=== PATIENT | female | born 1975 | race Caucasian/White ===

== ENCOUNTER 2017-10-01 19:05 | Emergency (ER) | payer MEDICAID, OTHER ==
[~2017-10-01] VITALS: Ht 170.2 cm; Wt 89.0 kg
[~2017-10-01 19:05] MED LIST: HYDR10TA16 PO; ULTR50TA PO
[2017-10-01] MEDS ORDERED: SODIUM CHLORIDE 0.9% FLUSH 10 ML FLUSH IVF PRN (19:15)
[2017-10-01] MEDS ORDERED: SODIUM CHLOR 0.9% 1000 ML INJ 1,000 ML IV ONE ×2 (19:15→21:30)
[2017-10-01 19:20] VITALS: BP 167/108; PULSE 118; RESP 14; TEMP 99.1; O2SAT 98
--- NOTE | 2017-10-01 19:23 | PD ---
HPI Chief Complaint: Cardiac Complaint Time Seen by Provider: 19:14 Travel History International Travel<30 days: No Contact w/Intl Traveler<30days: No Traveled to known affect area: No History of Present Illness HPI 42-year-old female presents to the emergency department by private transportation in the care of her family for evaluation of feeling as if her heart is racing. Patient denies any associated symptoms of chest pain shortness of breath pleuritic pain referred neck jaw back shoulder arm or abdominal pain. Patient denies any diaphoresis. No nausea or vomiting. No near syncope or syncope. Patient denies any prior history of rapid heartbeat. Patient states she drank 8 ounces cup of coffee approximately 5 PM. Patient states symptoms began around 6:30 PM while she was sitting at rest eating dinner. Patient states she feels as if her heart is still racing. In triage reportedly her heart rate was 161. Patient has history of Factor V Leiden deficiency and hypertension. Patient states she does not take a diuretic. Patient is not taking electrolyte supplements. Patient denies any known history of thyroid dysfunction. Patient has had no recent respiratory illness or cold symptoms is not taking any type of decongestant antihistamine or over- the-counter cold preparations. Patient denies alcohol use tobacco use or substance use. Patient's had no recent long distance travel protracted bedrest or surgical procedure does not report any lower extremity or upper extremity pain or swelling. No prior history of DVT or PE. PFSH Past Medical History Narrative Medical Factor V Leiden deficiency hypertension ectopic tubal ligation appendectomy elbow surgery; no tobacco use no alcohol use no substance use; nursing notes reviewed Cancer: No Cardiovascular Problems: No Endocrine: No Genitourinary: No Hepatitis: No Hiatal Hernia: No Immune Disorder: No Musculoskeletal: No Neurologic: No Psychiatric: No Reproductive: No Respiratory: No Thyroid Disease: No Ectopic : Yes Tubal Ligation: Yes Past Surgical History Abdominal Surgery: Yes (APPENDECTOMY) Appendectomy: Yes Gynecologic Surgery: Yes (TUBAL LIGATION) Joint Replacement: No Pacemaker: No Social History Alcohol Use: No Tobacco Use: No Substance Use: No Allergies-Medications (Allergen,Severity, Reaction): Coded Allergies: hydromorphone (Unverified Adverse Reaction, Severe, Nausea/Vomiting, ) Reported Meds & Prescriptions Reported Meds & Active Scripts Active Metoprolol Tartrate 25 Mg Tab 12.5 Mg PO DAILY Reported Zyrtec (Cetirizine HCl) 10 Mg Capsule 10 Mg PO DAILY Cholestyramine 4 Gm/Dose Powd 4 Gm PO BID 1 level scoopful of powder contains 4 grams of cholestyramine. Amlodipine (Amlodipine Besylate) 5 Mg Tab 5 Mg PO DAILY Review of Systems Except as stated in HPI: all other systems reviewed are Neg General / Constitutional: No: Fever, Chills HENT: No: Congestion Cardiovascular: Positive: Palpitations, Tachycardia, No: Chest Pain or Discomfort, Diaphoresis, Syncope, Dyspnea on exertion Respiratory: No: Cough, Shortness of Breath, Pleuritic Pain Gastrointestinal: No: Nausea, Vomiting, Abdominal Pain Genitourinary: No: Dysuria Musculoskeletal: No: Edema, Pain Skin: No Rash Neurologic: No: Weakness, Dizziness, Syncope Psychiatric: No: Anxiety Hematologic/Lymphatic: No: Easy Bruising Physical Exam Narrative GENERAL: Well-developed well-nourished obese female in no apparent acute distress or respiratory distress; GCS 15 SKIN: Warm and dry. HEAD: Normocephalic. EYES: No scleral icterus. No injection or drainage. NECK: Supple, trachea midline. No JVD or lymphadenopathy. CARDIOVASCULAR: Increased Regular rate and rhythm without murmurs, gallops, or rubs. Radial and dorsalis pedis pulses 2+ to palpation with rapid pulse. Capillary refill brisk and less than 2 seconds. RESPIRATORY: Breath sounds equal bilaterally. No accessory muscle use. GASTROINTESTINAL: Abdomen soft, non-tender, nondistended. MUSCULOSKELETAL: No cyanosis, or edema. BACK: Nontender without obvious deformity. No CVA tenderness. Data Data Last Documented VS Vital Signs Date Time Temp Pulse Resp B/P (MAP) Pulse Ox O2 Delivery O2 Flow Rate FiO2 10/01/17 20:45 Room Air 10/01/17 19:30 128 16 147/104 (118) 98 10/01/17 19:20 99.1 Orders Orders Electrocardiogram (10/01/17 19:14) Basic Metabolic Panel (Bmp) (10/01/17 19:14) B-Type Natriuretic Peptide (10/01/17 19:14) Ckmb (Isoenzyme) Profile (10/01/17 19:14) Complete Blood Count With Diff (10/01/17 19:14) Magnesium (Mg) (3/8/18 19:14) Prothrombin Time / Inr (Pt) (10/01/17 19:14) Act Partial Throm Time (Ptt) (10/01/17 19:14) Troponin I (10/01/17 19:14) Chest, Single Ap (10/01/17 19:14) Ecg Monitoring (10/01/17 19:14) Bilateral Bp Monitoring (10/01/17 19:14) Iv Access Insert/Monitor (10/01/17 19:14) Oximetry (10/01/17 19:14) Oxygen Administration (10/01/17 19:14) Sodium Chloride 0.9% Flush (Ns Flush) (10/01/17 19:15) Sodium Chlor 0.9% 1000 Ml Inj (Ns 1000 M (10/01/17 19:15) Thyroid Stimulating Hormone (10/01/17 19:14) Sodium Chlor 0.9% 1000 Ml Inj (Ns 1000 M (10/01/17 19:30) CKMB (10/01/17 19:20) CKMB% (10/01/17 19:20) Sodium Chlorid 0.9% 500 Ml Inj (Ns 500 M (10/01/17 20:45) Potassium Chloride (Kcl) (10/01/17 20:45) D-Dimer (10/01/17 20:35) Ct Pulmonary Angiogram (10/01/17 ) Sodium Chlor 0.9% 1000 Ml Inj (Ns 1000 M (10/01/17 21:30) Iohexol 350 Inj (Omnipaque 350 Inj) (10/01/17 21:53) Metoprolol Tartrate (Lopressor) (10/01/17 22:30) Ed Discharge Order (10/01/17 22:25) Labs Laboratory Tests Test 10/01/17 19:20 White Blood Count 9.1 TH/MM3 Red Blood Count 4.78 MIL/MM3 Hemoglobin 15.2 GM/DL Hematocrit 41.9 % Mean Corpuscular Volume 87.5 FL Mean Corpuscular Hemoglobin 31.7 PG Mean Corpuscular Hemoglobin Concent 36.3 % Red Cell Distribution Width 13.3 % Platelet Count 263 TH/MM3 Mean Platelet Volume 8.1 FL Neutrophils (%) (Auto) 49.5 % Lymphocytes (%) (Auto) 40.7 % Monocytes (%) (Auto) 7.4 % Eosinophils (%) (Auto) 1.8 % Basophils (%) (Auto) 0.6 % Neutrophils # (Auto) 4.5 TH/MM3 Lymphocytes # (Auto) 3.7 TH/MM3 Monocytes # (Auto) 0.7 TH/MM3 Eosinophils # (Auto) 0.2 TH/MM3 Basophils # (Auto) 0.1 TH/MM3 CBC Comment AUTO DIFF Differential Comment AUTO DIFF CONFIRMED Platelet Estimate NORMAL Platelet Morphology Comment NORMAL Spherocytes 1+ Ovalocytes 1+ Prothrombin Time 9.8 SEC Prothromb Time International Ratio 1.0 RATIO Activated Partial Thromboplast Time 25.7 SEC D-Dimer Quantitative (PE/DVT) 0.60 MG/L FEU Blood Urea Nitrogen 12 MG/DL Creatinine 0.96 MG/DL Random Glucose 172 MG/DL Calcium Level 9.0 MG/DL Magnesium Level 2.1 MG/DL Sodium Level 140 MEQ/L Potassium Level 3.2 MEQ/L Chloride Level 104 MEQ/L Carbon Dioxide Level 25.9 MEQ/L Anion Gap 10 MEQ/L Estimat Glomerular Filtration Rate 64 ML/MIN Total Creatine Kinase 184 U/L Creatine Kinase MB 1.5 NG/ML Troponin I LESS THAN 0.02 NG/ML B-Type Natriuretic Peptide 7 PG/ML Thyroid Stimulating Hormone 3rd Gen 2.310 uIU/ML MDM Medical Decision Making Medical Screen Exam Complete: Yes Emergency Medical Condition: Yes Medical Record Reviewed: Yes Interpretation(s) EKG sinus tachycardia rate [address] elevation injury pattern or ectopy note PCXR: nad Last Impressions Chest X-Ray 10/01/17 1914 Draft Impressions: Service Date/Time: September 19:29 - CONCLUSION: The lungs are clear. Greg Rodrigues MD CT Angiography 10/01/17 0000 Signed Impressions: Service Date/Time: September 21:49 - CONCLUSION: 1. The study is negative for pulmonary embolism. 2. Lower lung areas of scarring or atelectasis. Greg Rodrigues MD CBC & BMP Diagram 10/01/17 19:20 Calcium Level 9.0, Magnesium Level 2.1 Vital Signs Date Time Temp Pulse Resp B/P (MAP) Pulse Ox O2 Delivery O2 Flow Rate FiO2 10/01/17 20:45 Room Air 10/01/17 19:30 128 16 147/104 (118) 98 Room Air 10/01/17 19:26 123 14 159/103 (121) 98 Room Air 10/01/17 19:26 14 97 Room Air 10/01/17 19:24 118 14 97 Room Air 10/01/17 19:20 99.1 118 14 167/108 (127) 98 Differential Diagnosis Palpitations SVT arrhythmia ACS electrolyte disturbance PE pneumothorax Narrative Course Patient placed on cardiac catheterization technologist with continuous pulse oximetry patient identified on cardiac catheterization technologist to be in SVT regular narrow complex tachycardia with rate of 165; IV access obtained; vagal maneuvers performed without success. However while ensuring orders patient spontaneous converted to a sinus tachycardia with rate of 125. EKG no injury pattern noted non-specific isolated lead III Q-wave. @ 7:54 PM cardiac catheterization technologist ST 116 port cxr no acute abnormality; patient reports no pain or dyspnea; feels improved; labs pending At 9:15 PM patient's d-dimer is elevated in view of history of factor V Leiden deficiency and SVT with normal range electrolytes except for mildly decreased potassium CT pulmonary angiogram ordered. Patient administered IV fluids. Patient will be given prescription for metoprolol. No work 1 day. And encouraged to follow-up with her primary care provider [address] pulmonary angiogram -- negative for PE; VS HR nsr 98 w/o ectopy ra O2 sat 98 % BP 150/87 ; patient given x 1 dose metoprolol 12.5 mg and RX ---stable for outpatient management; encouraged to increase fluid hydration and potassium containing foods and beverages to dietary intake follow-up with her primary care provider and appears stable for outpatient Holter monitoring and echocardiogram. Diagnosis Primary Impression: SVT (supraventricular tachycardia) Additional Impression: Hypokalemia Referrals: Primary Care Physician 1 day Patient Instructions: General Instructions Additional Instructions: Increase fluid hydration Add potassium containing foods and beverages to dietary intake Take metoprolol as needed for rapid heartbeat Follow-up with your primary care provider call office in a.m. to schedule follow -up appointment times a day No work 1 day Return to the emergency department for any concerns or change in condition Med/Other Pt SpecificInfo: Prescription(s) given Scripts Metoprolol Tartrate (Metoprolol Tartrate) 25 Mg Tab 12.5 MG PO DAILY, #15 TAB 0 Refills Prov: Renetta Riley MD 10/01/17 Disposition: 01 DISCHARGE HOME Condition: Stable Renetta Riley MD Oct 01, 2017 19:23
[2017-10-01 19:26] VITALS: BP 159/103; PULSE 123; RESP 14; O2SAT 97; O2SAT 98
[2017-10-01 19:30] VITALS: BP 147/104; PULSE 128; RESP 16; O2SAT 98
[2017-10-01] MEDS ORDERED: SODIUM CHLOR 0.9% 1000 ML INJ 1,000 ML IV SCH (19:30)
--- NOTE | 2017-10-01 19:56 | RADRPT ---
EXAM DATE/TIME: 10/01/2017 19:29 [facility] COMPARISON: No previous studies available for comparison. INDICATIONS : Palpitations. MEDICAL HISTORY : None. SURGICAL HISTORY : None. ENCOUNTER: Initial ACUITY: 1 day PAIN SCORE: 0/10 LOCATION: Bilateral chest FINDINGS: A single view of the chest demonstrates the lungs to be symmetrically aerated without evidence of mas s, infiltrate or effusion. The cardiomediastinal contours are unremarkable. Osseous structures are intact. CONCLUSION: The lungs are clear. Greg Rodrigues MD on October 01, 2017 at 19:54 Board Certified Radiologist. This report was verified electronically.
[2017-10-01 19:58] LABS: PROTHROMBIN TIME - PATIENT 9.8 SEC (9.8-11.6)
[2017-10-01] MEDS ORDERED: CETI10CA3 PO (20:04)
[2017-10-01] MEDS ORDERED: AMLO5TAB2 PO (20:04)
[2017-10-01] MEDS ORDERED: CHOL4POW3 PO (20:04)
[2017-10-01 20:05] LABS: BICARBONATE 25.9 MEQ/L (21.0-32.0); BLOOD UREA NITROGEN 12 MG/DL (7-18); CHLORIDE 104 MEQ/L (98-107); CREATININE 0.96 MG/DL (0.50-1.00); GLOMERULAR FILTRATION RATE 64 ML/MIN (>89); GLUCOSE,RANDOM 172 MG/DL (74-106); MAGNESIUM 2.1 MG/DL (1.5-2.5); SODIUM (NA) 140 MEQ/L (136-145)
[2017-10-01 20:09] LABS: TROPONIN I LESS THAN 0.02 NG/ML (0.02-0.05)
[2017-10-01 20:26] LABS: AUTOMATED NEUTROPHIL # 4.5 TH/MM3 (1.8-7.7); BASOPHIL # 0.1 TH/MM3 (0-0.2); BASOPHIL % 0.6 % (0.0-2.0); EOSINOPHIL # 0.2 TH/MM3 (0-0.4); EOSINOPHIL % 1.8 % (0.0-4.0); HEMATOCRIT 41.9 % (35.0-46.0); HEMOGLOBIN 15.2 GM/DL (11.6-15.3); LYMPH % 40.7 % (9.0-44.0); LYMPHOCYTE # 3.7 TH/MM3 (1.0-4.8); MEAN CELL VOLUME 87.5 FL (80.0-100.0); MEAN CORPUSCULAR HEMOGLOBIN 31.7 PG (27.0-34.0); MEAN PLATELET VOLUME 8.1 FL (7.0-11.0); MONO % 7.4 % (0.0-8.0); MONOCYTE # 0.7 TH/MM3 (0-0.9); NEUT % 49.5 % (16.0-70.0); PLATELET COUNT 263 TH/MM3 (150-450); RED BLOOD COUNT 4.78 MIL/MM3 (4.00-5.30); RED CELL DISTRIBUTION WIDTH 13.3 % (11.6-17.2); WHITE BLOOD COUNT 9.1 TH/MM3 (4.0-11.0)
[2017-10-01 20:29] LABS: MEAN CORPUSCULAR HGB CONC 36.3 % (32.0-36.0)
[2017-10-01] MEDS ORDERED: SODIUM CHLORID 0.9% 500 ML INJ 500 ML IV ONE (20:45)
[2017-10-01] MEDS ORDERED: POTASSIUM CHLORIDE 20 MEQ CONTROLLED RELEASE TAB PO ONE (20:45)
[2017-10-01 21:07] LABS: OVALOCYTES 1+ (NORMAL); SPHEROCYTES 1+ (NORMAL)
[2017-10-01] MEDS ORDERED: METO25TA3 PO (21:50)
[2017-10-01] MEDS ORDERED: IOHEXOL 350 MG/ML 10 ML VIAL (for RAD DIAG) IVCONTRAST ONE (21:53)
--- NOTE | 2017-10-01 22:12 | RADRPT ---
EXAM DATE/TIME: 10/01/2017 21:49 [facility] COMPARISON: No previous studies available for comparison. INDICATIONS : Tachycardio. Elevated d-dimer. IV CONTRAST: 75 cc Omnipaque 350 (iohexol) IV RADIATION DOSE: 10.51 CTDIvol (mGy) MEDICAL HISTORY : None SURGICAL HISTORY : Tubal ligation. ENCOUNTER: Initial ACUITY: 1 day PAIN SCALE: 0/10 LOCATION: chest TECHNIQUE: Volumetric scanning of the chest was performed using a pulmonary embolism protocol MIP images were re constructed. Using automated exposure control and adjustment of the mA and/or kV according to patien t size, radiation dose was kept as low as reasonably achievable to obtain optimal diagnostic quality images. DICOM format image data is available electronically for review and comparison. Follow-up recommendations for detected pulmonary nodules are based at a minimum on nodule size and pa tient risk factors according to Fleischner Society Guidelines. FINDINGS: PULMONARY ARTERIES: No filling defects are seen in the pulmonary arteries through the segmental level. LUNGS: Non-consolidative areas of linear scarring in the lateral left lower lung N. the right medial paraspi nal region. No consolidative infiltrates. No concerning nodules. PLEURAE: There is no pleural thickening or pleural effusion. MEDIASTINUM: There is good visualization of the great vessels of the middle mediastinum. No evidence of mediastin al or hilar adenopathy/mass. CONCLUSION: 1. The study is negative for pulmonary embolism. 2. Lower lung areas of scarring or atelectasis. Greg Rodrigues MD on October 01, 2017 at 22:09 Board Certified Radiologist. This report was verified electronically.
[2017-10-01] MEDS ORDERED: METOPROLOL TARTRATE 25 MG TAB PO ONE (22:30)
[2017-10-01 22:44] VITALS: BP 151/87; PULSE 98; RESP 16; O2SAT 97
[2017-10-01 23:19] VITALS: BP 148/89; PULSE 95; RESP 16; O2SAT 95
--- NOTE | 2017-10-01 23:40 | EKG ---
Date Performed: 10/01/2017 Time Performed: 19:17:39 PTAGE: 42 years EKG: SINUS TACHYCARDIA ABNORMAL ECG Compared to prior tracing, rate has increased DOCTOR: Jese Song Interpretating Date/Time 10/01/2017 23:38:51
== END 2017-10-01 23:58 | disposition home or self-care (01) ==
LOC: NEPC 19:05
DX: I47.1 Supraventricular tachycardia (principal); E87.6 Hypokalemia; R00.0 Tachycardia, unspecified; R00.2 Palpitations; R94.31 Abnormal electrocardiogram [ECG] [EKG]; D68.51 Activated protein C resistance; I10 Essential (primary) hypertension; Z79.899 Other long term (current) drug therapy; Z88.5 Allergy status to narcotic agent
CPT/HCPCS: 71045; 71275; 80048; 82550; 82552; 83735; 83880; 84443; 84484; 85025; 85379; 85610; 85730; 93005; 99285; J7030; J7040; Q9967